=== PATIENT | female | born 1950 | race Caucasian/White ===

== ENCOUNTER 2024-07-24 13:57 | Outpatient (CLI) | payer MEDICARE, BC, SELFPAY | END 2024-07-24 13:58 | disposition home or self-care (01) | LOC: NFLDREF 08-01 21:23 | PROVIDERS: PCP Family Medicine; Referring Provider Family Medicine | DX: N39.0 Urinary tract infection, site not specified (principal) | CPT/HCPCS: 87086; 87186 ==